=== PATIENT | male | born 1960 | race Caucasian/White ===

== ENCOUNTER 2020-07-12 13:53 | Outpatient (CLI) | payer OTHER | END 2020-07-12 14:06 | disposition home or self-care (01) | LOC: SONOGRAMA 13:53 → MAMO-SONO 14:00 → SONOGRAMA 14:06 | PROVIDERS: ATTEND Urology | DX: N20.0 Calculus of kidney (principal); N40.0 Benign prostatic hyperplasia without lower urinary tract symptoms; F52.21 Male erectile disorder; R31.1 Benign essential microscopic hematuria ==

== ENCOUNTER 2020-09-06 09:42 | Outpatient (CLI) | payer OTHER | END 2020-09-06 09:56 | disposition home or self-care (01) | LOC: RAD 09:42 | PROVIDERS: ATTEND Urology | DX: N40.0 Benign prostatic hyperplasia without lower urinary tract symptoms (principal); N20.1 Calculus of ureter; F52.21 Male erectile disorder; I87.8 Other specified disorders of veins ==

== ENCOUNTER 2021-09-18 12:33 | Outpatient (CLI) | payer OTHER | END 2021-09-18 12:49 | disposition home or self-care (01) | LOC: SONOGRAMA 12:33 | PROVIDERS: ATTEND Urology | DX: N40.0 Benign prostatic hyperplasia without lower urinary tract symptoms (principal); F52.21 Male erectile disorder; N20.0 Calculus of kidney ==